=== PATIENT | male | born 1945 | race Caucasian/White ===

== ENCOUNTER 2017-07-06 22:05 | Inpatient (IN) | payer OTHER, BC ==
[~2017-07-06] VITALS: Ht 182.9 cm; Wt 120.7 kg
[~2017-07-06 22:05] MED LIST: ASPIR-TRIN325 M1 PO; CALTRATE 6001 TABLE1 PO; CELEBREX200 MG PO; COZAAR100 MG PO; Cozaar PO; Ecotrin PO; FENOFIBRATE160 M1 PO; GLIMEPIRIDE1 MG PO; GLUCOPHAGE1000 MG PO; GLUCOPHAGE500 MG PO; LOFIBRA,TRIGLI160 MG PO; LYRICA75 MG PO; Lofibra,Triglide PO; PERCOCET 10/1 TABLET PO; PRILOSEC20 MG PO; Percocet 5/325,Endoc PO; PriLOSEC OTC PO; Prilosec PO; SENOKOT S,PE1 TABLET PO; Senokot S,Pericolace PO; Vicodin,Lortab 5/500 PO; Zyloprim PO; celeBREX PO
[2017-07-07 09:43] VITALS: BP 120/78
[2017-07-07 17:46] VITALS: BP 129/76
[2017-07-07 19:35] VITALS: BP 124/66
[2017-07-07 23:06] VITALS: BP 123/72
[2017-07-08 03:18] VITALS: BP 130/74
[2017-07-08 07:05] LABS: HEMATOCRIT 40.2 % (38.0-50.0); HEMOGLOBIN 12.9 G/DL (12.5-16.6)
[2017-07-08 08:00] VITALS: BP 111/65
[2017-07-08] MEDS ORDERED: OXYCODONE HCL5 MG PO (08:27)
== END 2017-07-08 12:33 | disposition home or self-care (01) | DRG 483 ==
LOC: ENRESERV 22:05 → 3EAST 07-07 09:07 → 2SOUTH 07-07 09:07 → 3EAST 07-07 09:07 → 2SOUTH 07-07 15:50 → ENRESERV 07-07 16:24 → 3EAST 07-07 17:13 → ENPENDDIS 07-08 08:29 → 3EAST 07-08 09:24
PROVIDERS: Orthopaedic Surgery
PROC: 0RRK00Z Replacement of Left Shoulder Joint with Reverse Ball and Socket Synthetic Substitute, Open Approach (ICD-10-PCS; principal; 2017-07-07)
DX: M75.122 Complete rotator cuff tear or rupture of left shoulder, not specified as traumatic (principal); M19.012 Primary osteoarthritis, left shoulder; G89.29 Other chronic pain; E11.9 Type 2 diabetes mellitus without complications; E78.5 Hyperlipidemia, unspecified; I10 Essential (primary) hypertension; K21.9 Gastro-esophageal reflux disease without esophagitis; R35.0 Frequency of micturition
CPT/HCPCS: 82948; 85014; 85018; A6214; C1713; G0378; J0330; J0690; J1100; J1170; J2405; J2710; J2795; J7030; J7050